=== PATIENT | female | born 1960 | race Two or more races ===

== ENCOUNTER 2024-11-30 12:10 | Day surgery (SDC) | payer MEDICARE, MEDICAID, SELFPAY ==
--- NOTE | 2024-11-29 09:12 | EKG_ITS ---
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
[2024-11-29 09:55] LABS: Basophils % (Auto) 0 % (0-2.5); Eosinophils # (Auto) 0.2 Thou/mm3 (0.0-0.5); Eosinophils % (Auto) 5 % (0-10); Hematocrit 41.2 % (36.0-46.0); Hemoglobin 14.9 g/dL (12.0-16.0); Immature Granulocytes % (Auto) 0 % (0-0); Immature Granulocytes Auto 0.01 Thou/mm3 (0.00-0.00); Lymphocytes % (Auto) 30 % (10-50); Mean Corpuscular HGB Conc 36.2 g/dl (31.0-37.0); Mean Corpuscular Hemoglobin 32.1 pg (25.0-35.0); Mean Corpuscular Volume 89 fL (80-100); Monocytes # (Auto) 0.4 Thou/mm3 (0.0-0.8); Monocytes % (Auto) 11 % (0-12); Neutrophils # (Auto) 1.9 Thou/mm3 (1.8-7.7); Neutrophils % (Auto) 53 % (37-80); Nucleated Red Blood Cell % 0 /100 WBC (0); RDW Standard Deviation 45.6 fL (36.4-46.3); Red Blood Count 4.64 Miln/mm3 (4.00-5.20); White Blood Count 3.5 Thou/mm3 (3.6-11.0)
[2024-11-29 10:17] LABS: Platelet Count 64 Thou/mm3 (140-440)
[2024-11-29 10:21] LABS: Alanine Aminotransferase 12 U/L (10-49); Albumin, Serum 3.9 gm/dL (3.4-4.8); Albumin/Globulin Ratio 1.4 (1.2-2.2); Alkaline Phosphatase 77 U/L (46-116); Anion Gap 11 (7-16); Aspartate Amino Transferase 27 U/L (0-34); BUN/Creatinine Ratio 15 Ratio (12-20); Bilirubin,Total 2.4 mg/dL (0.3-1.2); Blood Urea Nitrogen 9 mg/dL (9-23); Calcium 9.9 mg/dL (8.3-10.6); Carbon Dioxide 26.2 mMol/L (20.0-31.0); Chloride 104 mMol/L (98-107); Creatinine (Component) 0.6 mg/dL (0.6-1.3); Globulin 2.8 gm/dL (2.3-3.5); Glucose 98 mg/dL (74-106); Osmolality,Calculated 279 (275-295); Potassium 3.9 mMol/L (3.4-5.1); Sodium 141 mMol/L (136-145); Total Protein 6.7 gm/dL (5.7-8.2); eGFR > 60 See Note
[2024-11-29 17:35] LABS: Slide Review Platelets confirmed
[2024-11-30] VITALS (8 sets, daily range): BP systolic 93–157; BP diastolic 53–63; PULSE 62–79; RESP 12–20; TEMP 36.4–36.7; O2SAT 95–100; BMI 30.9
--- NOTE | 2024-11-30 17:30 | SUR.PHASEII ---
3440 Patient arrived to recovery resting comfortably in [facility], on oxygen 2L via oxy mask, breathing unlabored, vital signs stable, denies pain and nausea
[2024-11-30] MEDS: PANTOPRAZOLE INJ 40 MG VIAL 80 MG IV (17:41)
--- NOTE | 2024-11-30 18:51 | SUR.PHASEII ---
1851 Patient meets discharge criteria from recovery, awake and alert, breathing unlabored, vital signs stable, denies pain and nausea, patient assisted with dressing into her clothing by this poem writer and her daughter, patient signed limited proficiency statement for her daughter to translate Sammarinese to her, discharge instructions given to patient and patients daughter, daughter signed discharge instructions. Patient given all her belongings prior to discharge, transported via her personal wheelchair and left in a private vehicle.
== END 2024-11-30 18:51 | disposition home or self-care (01) ==
PROVIDERS: Anesthesiology; PCP Registered Nurse Community Health; Referring Provider Internal Medicine Gastroenterology; Visit Provider Internal Medicine Gastroenterology
PROC: 0DJD8ZZ Inspection of Lower Intestinal Tract, Via Natural or Artificial Opening Endoscopic (ICD-10-PCS; CPT 45378; principal; 2024-11-30 14:00)
PROC: (CPT 43239; 2024-11-30 14:00)
DX: K52.9 Noninfective gastroenteritis and colitis, unspecified (principal); D12.3 Benign neoplasm of transverse colon; K64.8 Other hemorrhoids; K57.30 Diverticulosis of large intestine without perforation or abscess without bleeding; Z01.810 Encounter for preprocedural cardiovascular examination; K31.7 Polyp of stomach and duodenum; K29.50 Unspecified chronic gastritis without bleeding; K31.89 Other diseases of stomach and duodenum
CPT/HCPCS: 45385; 45380; 36415; 80053; 85025; 93005; A4649; J2250; J2371; J2470; J2704; J3010; J3490; J1596

== ENCOUNTER 2024-12-13 17:18 | Emergency (ER) | payer MEDICARE, MEDICAID, SELFPAY ==
[2024-12-13 18:06] VITALS: BP 188/64; PULSE 56; RESP 18; TEMP 36.9; O2SAT 99; BMI 33.1
--- NOTE | 2024-12-13 18:10 | EKG_ITS ---
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
--- NOTE | 2024-12-13 18:10 | XR_ITS ---
Examination: CT abdomen with intravenous contrast CT pelvis with intravenous contrast 2-D coronal reconstructions 2-D sagittal reconstructions Date and time of exam:December 14, 1999 2521 6 hours Indications: Right upper abdominal pain vomiting beginning today. CTDI: vol (mGy) 8.98 DLP: (mGycm) 458 Technique: Multiple axial sections of the abdomen and pelvis have been obtained. 64 slice high-resolution scanner used. 3 mm axial sections have been obtained, post intravenous injection 60 cc [id number]-370 2-D sagittal, coronal reconstructions obtained. Low dose protocols were performed. One or more of the following dose reduction techniques were used; automated exposure control, adjustment of the mA and/or KV according to patient size, use of iterative reconstruction technique. 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
--- NOTE | 2024-12-13 18:12 | PD.EDABDPN ---
ED Abdominal Pain RME/HPI General Chief Complaint: Abdominal Pain Stated complaint: RLQ ABD PAIN RADIATING TO BACK, VOMITING Time seen by provider: 12/13/24 17:50 Arrival date/time: 12/13/24 17:18 RME / HPI RME / HPI narrative: Patient is a 64-year-old female with history of cirrhosis and pelvic/ovarian mass presents to the ED with complaint of lower abdominal pain onset earlier today. Patient had an episode of vomiting. Patient states the pain radiates to her back. Pain described as sharp. No fevers. No chest pain. Patient does endorse constipation. Related Data Home Medications ?Medication ?Instructions ?Recorded ?Confirmed furosemide 20 mg tablet 20 mg PO QDAY 12/03/19 11/29/24 lisinopril 5 mg tablet 5 mg PO QDAY 12/03/19 11/29/24 potassium chloride 10 mEq 10 meq PO QDAY 12/03/19 11/29/24 capsule,extended release Previous Rx's ?Medication ?Instructions ?Recorded ferrous sulfate 325 mg (65 mg 325 mg PO BIDWM #60 tabs 12/07/19 iron) tablet,delayed release pantoprazole 40 mg tablet,delayed 40 mg PO QDAY #30 tabs 12/07/19 release ondansetron 4 mg disintegrating 4 mg PO Q8H PRN nausea and 12/13/24 tablet vomiting #30 tabs polyethylene glycol 3350 17 17 g PO QDAY 5 days #119 grams 12/13/24 gram/dose oral powder Allergies Allergy/AdvReac Type Severity Reaction Status Date / Time No Known Allergies Allergy Verified 12/13/24 17:22 Review of Systems Review of Systems Systems Reviewed: All systems reviewed, normal except as documented Past Medical History Past Medical History NEUROLOGIC: Negative Neurological Disorders, Transient Ischemic Attacks (TIA), Dementia, Alzheimer's Disease, Parkinson's Disease, Brain Tumor, Meningitis, Seizures, Epilepsy, Multiple Sclerosis, Cerebral Palsy, Amyotrophic Lateral Sclerosis (ALS/Azalia Gehrig's), Guillain-Galt Syndrome, Spina Bifida, Paralysis, Peripheral Neuropathy, Soler's Palsy, Subdural Hematoma, Migraine, Head Trauma or Spinal Cord Injury CARDIAC: Positive Cardiac Disorders, Edema and Hypertension; Negative Myocardial Infarction, Cardiac Arrhythmia, Atrial Fibrillation, Angina, Heart Murmur, Coronary Artery Disease, Atherosclerotic Heart Disease, Peripheral Vascular Disease, Hypercholesterolemia, Aneurysm, Congestive Heart Failure, Congenital Heart Disease, Valvular Heart Disease, Rheumatic Fever, Cardiomyopathy, Pericarditis, Cellulitis, Deep Vein Thrombosis, Hypotension or Varicose Veins RESPIRATORY: Negative Chronic Obstructive Pulmonary Disease (COPD), Asthma, Bronchitis, Emphysema, Pneumonia, Pulmonary Fibrosis, Cystic Fibrosis, Tuberculosis, Pulmonary Embolism, Pulmonary Edema or Sleep Apnea GASTROINTESTINAL: Negative Gastrointestinal Disorders, Hepatitis, Cirrhosis, Pancreatitis, Celiac Disease, Gall Bladder Disease, Gastrointestinal Bleed, Esophageal Varices, Jasso's Esophagus, Colitis, Ulcerative Colitis, Diverticulitis, Diverticulosis, Ulcer, Colorectal Cancer, Irritable Bowel, Crohn's Disease, Obstructive Bowel, Hiatal Hernia, Hemorrhoids, Gastroesophageal Reflux Disease or Obesity GENITOURINARY: Negative Genitourinary Disorders, Renal Disease, Kidney Stones, Polycystic Kidney Disease, Neurogenic Bladder, Inguinal Hernia, Dialysis or Benign Prostatic Hyperplasia REPRODUCTIVE: Negative Breast Cancer, Endometriosis, Genital Herpes, Gonorrhea, Pelvic Inflammatory Disease, Previous Pregnancies, Syphilis or Uterine Prolapse MUSCULOSKELETAL: Negative Musculoskeletal Disorders, Muscular Dystrophy, Myasthenia Gravis, Marfan's Syndrome, Bone Cancer, Arthritis, Rheumatoid Arthritis, Osteoporosis, Degenerative Disk Disease, Gout, Scoliosis, Carpal Tunnel Syndrome, Fibromyalgia, Fractures, Degenerative Joint Disease, Osteomyelitis or Poliovirus ENT: Negative Cataracts, Glaucoma, Blind, Retinal Detachment, Macular Degeneration, Ear Infection, Deafness, Head Trauma or Eye Prosthesis ENDOCRINE: Negative Endocrine Disorders, Diabetes Mellitus Type 1, Diabetes Mellitus Type 2, Hypoglycemia, [place]'s Syndrome, Ignacio's Disease, Hyperthyroidism, Hypothyroidism, Parathyroid Disease, Pituitary Disease, Systemic Lupus Erythematosus, Syndrome of Inappropriate Antidiuretic Hormone (SIADH), Adrenal Disease or Graves' Disease HEMATOLOGIC: Positive Blood Disorders and Anemia; Negative Leukemia, Hemophilia, Thalassemia, Sickle Cell Disease or Clotting Problems PSYCHO/SOCIAL: Negative Psychiatric Problems, Schizophrenia, Recreational Drug Use, Bipolar Disorder, Depression, Anxiety, Behavior Problems, Self-Mutilation, Attention Deficit Disorder, Attention Deficit Hyperactivity Disorder, Depression, Post Traumatic Stress Disorder or Eating Disorder OTHER HISTORY: Positive Falls; Negative Hospitalization, Autoimmune Disease, Down Syndrome, Autism, Developmental Delay, Shingles, Blood Transfusions, Blood Transfusion Reaction, Anesthesia Reactions, Organ Transplant, Chemotherapy, Radiation Therapy, Hyperbaric Therapy, MRSA, VRSA, Vancomycin-Resistant Enterococci, Human Immunodeficiency Virus (HIV), Chicken Pox, Measles, Mumps, Rubella (Kinyarwanda Measles), Pertussis, Clostridium Difficile, Cancer, Breast Cancer, Cervical Cancer, Colorectal Cancer, Lung Cancer or Ovarian Cancer Family History FAMILY HISTORY: Negative Family Psychiatric Problems, Family Respiratory Disorders, Family Cardiac Disorders, Family Gastrointestinal Problems, Family Cancer, Family Surgery or Family Anesthesia Reaction Surgical History SURGICAL: Negative Cardiac Surgery, Open Heart Surgery, Coronary Artery Bypass Graft, Valve Replacement, Vascular Surgery, Coronary Stent, Cardiac Catheterization, Pacemaker, Angiogram, Auto Implanted Cardiovert Defib, Carotid Endarterectomy, Endocrine Surgery, Thyroidectomy, Ear Surgery, Tympanostomy Tube, Eye Surgery, Nose Surgery, Oral Surgery, Tonsillectomy, Adenoidectomy, Cochlear Implant, Corneal Transplant, Throat Surgery, Abdominal Surgery, Tracheostomy, Gastric Bypass Surgery, Gastrostomy, Bowel Surgery, Nephrectomy, Transurethral Resection, Joint Replacement, Amputation, Open Reduction Internal Fixation, Arthroscopy, Neurologic Surgery, Brain Shunt, Mastectomy, Lumpectomy, Hysterectomy, Tubal Ligation, Section or Organ Transplant Social History SMOKING STATUS: Never smoker Travel History EBOLA RISK: No ED Exam Narrative Physical exam: Constitutional: no acute distress, age appropriate, non-toxic Eyes: PERRL, conjunctivae w/o pallor, EOMI HENT: normocephalic, atraumatic. Oral mucosa moist Respiratory Effort: no stridor, effort normal, no retractions Breath sounds: Clear bilaterally; No rales, No rhonchi, No wheezing Cardiovascular: regular rhythm, S1 and S2 normal, no murmur Abdominal: soft; non-distended. Generalized lower abdominal tenderness without rebound tenderness or guarding. Musculoskeletal: no deformities, no swelling, no LE edema Skin: warm, dry; No rash Neurology: alert, oriented X 4. Normal gait. Moves all extremities spontaneously. Psychology: cooperative, normal mood Course Quality Measures none Orders Category Date Time Status CT Screening NOW Care 12/13/24 18:10 Active EKG (ED ONLY) *Do not use* NOW Care 12/13/24 18:[address] abdomen pelvis w con Stat Exams 12/13/24 18:10 Completed EKG (ED Only) Stat Exams 12/13/24 18:10 Ordered CBC Stat Lab 12/13/24 18:21 Completed CMP [Comprehensive Metabolic Panel] Stat Lab 12/13/24 18:21 Completed Lipase Stat Lab 12/13/24 18:21 Completed Troponin I Stat Lab 12/13/24 18:21 Completed Urinalysis Stat Lab 12/13/24 18:30 Completed HYDROcodone*/APAP 5/325 [[place] 5/325] Med 12/13/24 18:10 Discontinued 1 tab PO X1 ONE Ondansetron Odt [Zofran Odt] Med 12/13/24 18:10 Discontinued 4 mg PO X1 ONE Vital Signs Vital signs: Vital Signs Temperature 98.4 F 12/13/24 18:06 Pulse Rate 56 L 12/13/24 18:06 Respiratory Rate 18 12/13/24 18:06 Blood Pressure 188/64 H 12/13/24 18:06 Pulse Oximetry (%) 99 12/13/24 18:06 Oxygen Delivery Method Room Air 12/13/24 18:06 Abdominal Pain MDM MDM Narrative MDM Narrative:: 64-year-old female with history of cirrhosis and ovarian mass presents with complaint of lower abdominal pain and constipation. Differential diagnoses include appendicitis, diverticulitis, UTI, bowel obstruction CT scan shows previously present ovarian mass. No appendicitis or diverticulitis. No bowel obstruction. Patient felt better after medications. Will send Rx for MiraLAX for constipation. Counseled to increase oral fluid intake. Patient is following with [facility] in [place]. No indication for admission or further workup. Counseled to follow-up with primary care and with her specialist in [place]. Strict return to ED precautions given. Stable for discharge home. Patient data External records reviewed:: [facility] previous records Clinical information provided by:: patient Social determinants that could affect healthcare access:: none Patient has the following chronic illnesses:: Hypertension, anemia How is presenting disease/condition affected by chronic disease/condition?: uneffected by Evaluation data The following diagnostics were reviewed and interpreted by me:: lab results, radiology exam(s) and EKG tracing(s) Lab and/or radiology exams considered but not ordered:: None Interpretation Summary: EKG: Sinus bradycardia rate of 53. No STEMI. No T wave abnormalities. No heart block. CBC shows no leukocytosis. Chronic thrombocytopenia at baseline. Normal hemoglobin. CMP shows no electrolyte abnormalities, no LUCIAN. Bilirubin at baseline. UA unremarkable Examination: CT abdomen with intravenous contrast CT pelvis with intravenous contrast 2-D coronal reconstructions 2-D sagittal reconstructions Date and time of exam:December 14, 1999 2521 6 hours Indications: Right upper abdominal pain vomiting beginning today. 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 (list below): No Diagnosis Differential diagnosis abdominal pain: other (See MDM) Most likely diagnosis given after review of the tests above:: Pelvic mass, constipation Admission Indicated Admission indicated?: not indicated Admission Request Was there a request for admission?: No Disposition Plan Disposition Plan: Discharge Discharge Attestation Discharge Attestation: The patient and all family members were given an opportunity to ask questions and understood the discharge instructions. Discharge instructions specifically effects, indications for sooner follow up or return to the emergency department, and the expected course of current diagnosis. Patient condition: Stable Discharge Plan Plan Patient Disposition: HOME (Self Care) Prescriptions/Referrals Prescriptions/Med Rec: New polyethylene glycol 3350 17 gram/dose powder 17 g PO QDAY 5 Days Qty: 119 0RF ondansetron 4 mg tablet,disintegrating 4 mg PO Q8H PRN (Reason: nausea and vomiting) Qty: 30 0RF No Action potassium chloride 10 mEq Capsule, Extended Release 10 meq PO QDAY lisinopril 5 mg Tablet 5 mg PO QDAY furosemide 20 mg Tablet 20 mg PO QDAY pantoprazole 40 mg Tablet,Delayed Release (Dr/Ec) 40 mg PO QDAY Qty: 30 0RF ferrous sulfate 325 mg (65 mg iron) Tablet,Delayed Release (Dr/Ec) 325 mg PO BIDWM Qty: 60 0RF Referrals: No Primary/Family,Physician [Primary Care Provider] - In 1 week Problem List Clinical Impression: Pelvic mass in female, Constipation Patient/Caregiver Discharge Instructions Education Materials: ED Constipation (Adult) Additional Instructions: Increase oral fluid intake. Follow-up with your specialist in [place]. Follow-up with primary care. Return to the ED at anytime for any new or worsening symptoms. Print Language: Kuwaiti Stand Alone Forms: Dahlia Award Info., Patient Portal Info Letter
[2024-12-13 18:43] LABS: Basophils % (Auto) 0 % (0-2.5); Eosinophils # (Auto) 0.1 Thou/mm3 (0.0-0.5); Eosinophils % (Auto) 2 % (0-10); Hematocrit 38.5 % (36.0-46.0); Hemoglobin 13.9 g/dL (12.0-16.0); Immature Granulocytes % (Auto) 0 % (0-0); Immature Granulocytes Auto 0.01 Thou/mm3 (0.00-0.00); Lymphocytes # (Auto) 0.6 Thou/mm3 (1.0-4.8); Lymphocytes % (Auto) 14 % (10-50); Mean Corpuscular HGB Conc 36.1 g/dl (31.0-37.0); Mean Corpuscular Volume 89 fL (80-100); Monocytes # (Auto) 0.3 Thou/mm3 (0.0-0.8); Monocytes % (Auto) 7 % (0-12); Neutrophils # (Auto) 3.4 Thou/mm3 (1.8-7.7); Neutrophils % (Auto) 76 % (37-80); Nucleated Red Blood Cell % 0 /100 WBC (0); RDW Standard Deviation 45.7 fL (36.4-46.3); Red Blood Count 4.35 Miln/mm3 (4.00-5.20); White Blood Count 4.5 Thou/mm3 (3.6-11.0)
[2024-12-13 18:57] LABS: Platelet Count 69 Thou/mm3 (140-440)
[2024-12-13 19:12] LABS: Alanine Aminotransferase 7 U/L (10-49); Albumin, Serum 3.9 gm/dL (3.4-4.8); Albumin/Globulin Ratio 1.3 (1.2-2.2); Alkaline Phosphatase 74 U/L (46-116); Anion Gap 11 (7-16); Aspartate Amino Transferase 29 U/L (0-34); BUN/Creatinine Ratio 20 Ratio (12-20); Bilirubin,Total 1.4 mg/dL (0.3-1.2); Blood Urea Nitrogen 10 mg/dL (9-23); Calcium 9.3 mg/dL (8.3-10.6); Calcium (Corrected) 9.4 mg/dL (8.5-10.1); Carbon Dioxide 24.1 mMol/L (20.0-31.0); Chloride 105 mMol/L (98-107); Creatinine (Component) 0.5 mg/dL (0.6-1.3); Estimated Creatinine Clearance 97.3 mL/min (>60); Glucose 150 mg/dL (74-106); Lipase 50 U/L (12-53); Osmolality,Calculated 281 (275-295); Potassium 3.3 mMol/L (3.4-5.1); Sodium 140 mMol/L (136-145); Total Protein 6.9 gm/dL (5.7-8.2); Troponin I < 0.020 ng/mL (0.0-0.045); eGFR > 60 See Note
[2024-12-13 19:13] LABS: Collection Type, Urine Clean Catch
[2024-12-13] MEDS: ONDANSETRON ODT 4 MG TABRAP PO (19:17)
[2024-12-13] MEDS: HYDROcodone/APAP 5/325 TABLET 1 TAB PO (19:17)
[2024-12-13 19:19] LABS: Slide Review Platelets confirmed
[2024-12-13 19:20] LABS: Bacteria,Urine Rare; Bilirubin,Urine Negative (Negative); Blood,Urine Negative (Negative); Clarity,Urine Clear (Clear/Hazy); Color,Urine Yellow (Lt Yel-Yel); Glucose, Urine Negative (Negative); Ketones,Urine 1+ (Negative); Leukocyte Esterase,Urine Negative (Negative); Nitrite,Urine Negative (Negative); Protein,Urine Trace (Neg - Trace); RBC,Urine 4 /hpf (0-3); Specific Gravity,Urine 1.022 (1.001-1.035); Squamous Epithelial Cell,Urine 3 /hpf (0-5); WBC,Urine 4 /hpf (0-5)
== END 2024-12-13 23:00 | disposition home or self-care (01) ==
PROVIDERS: Physician Assistant; Emergency Provider Emergency Medicine
DX: K80.20 Calculus of gallbladder without cholecystitis without obstruction (principal); K59.00 Constipation, unspecified; R19.00 Intra-abdominal and pelvic swelling, mass and lump, unspecified site; R00.1 Bradycardia, unspecified; K74.60 Unspecified cirrhosis of liver; I85.10 Secondary esophageal varices without bleeding; R18.0 Malignant ascites; R16.1 Splenomegaly, not elsewhere classified; I10 Essential (primary) hypertension
CPT/HCPCS: 36415; 74177; 80053; 81001; 83690; 84484; 85025; 93005; 99285; A4649; Q0162; Q9967; A9270

== ENCOUNTER → 2024-12-14 | Outpatient (CLI) | payer MEDICARE, MEDICAID, SELFPAY ==
--- NOTE | 2024-12-14 09:30 | XR_ITS ---
Examination: CT abdomen and pelvis without contrast. Coronal 3-D reconstructions. Sagittal 2-D reconstructions. Date and time of exam:December 14, 2024 1227 hours Comparison December 13, 2024 INDICATIONS: Cirrhosis diagnosis August 2023 with right upper abdominal pain beginning 2 days ago CTDI: vol (mGy): 8.67 DLP: (mGycm): 434 Technique: Axial images of the abdomen have been obtained, 3 mm slice thickness Intravenous contrast material has not been administered. Low dose protocols were performed. One or more of the following dose reduction techniques were used; automated exposure control, adjustment of the mA and/or KV according to patient size, use of iterative reconstruction technique. Findings: Mild to moderate enlargement cardiac contour Cirrhosis, liver nodular in contour 25 mm liver cyst Mild ascites Cholelithiasis Prominent splenomegaly Esophageal varices Perigastric varices Bilateral renal calculi 1 to 3 mm, no hydronephrosis No bowel obstruction Again noted septated complex cystic mass in the pelvis, at least 10 x 14 x 11 cm Significant osteopenia IMPRESSION: Cirrhosis Prominent splenomegaly Cholelithiasis Mild ascites Bilateral nonobstructing renal calculi Again noted large complex septated cystic mass in the pelvis, at least 10 x 14 x 11 cm
[2024-12-14 11:52] LABS: Misc Send Out* See Sep Rpt
[2024-12-14 12:17] LABS: Basophils % (Auto) 0 % (0-2.5); Eosinophils # (Auto) 0.1 Thou/mm3 (0.0-0.5); Eosinophils % (Auto) 3 % (0-10); Hematocrit 37.7 % (36.0-46.0); Hemoglobin 13.2 g/dL (12.0-16.0); Immature Granulocytes % (Auto) 1 % (0-0); Immature Granulocytes Auto 0.03 Thou/mm3 (0.00-0.00); Lymphocytes # (Auto) 0.5 Thou/mm3 (1.0-4.8); Lymphocytes % (Auto) 11 % (10-50); Mean Corpuscular Hemoglobin 31.4 pg (25.0-35.0); Mean Corpuscular Volume 90 fL (80-100); Monocytes # (Auto) 0.3 Thou/mm3 (0.0-0.8); Monocytes % (Auto) 7 % (0-12); Neutrophils # (Auto) 3.6 Thou/mm3 (1.8-7.7); Neutrophils % (Auto) 78 % (37-80); Nucleated Red Blood Cell % 0 /100 WBC (0); RDW Standard Deviation 46.7 fL (36.4-46.3); White Blood Count 4.6 Thou/mm3 (3.6-11.0)
[2024-12-14 12:19] LABS: INR 1.2 (0.9-1.3); Prothrombin Time 12.6 Seconds (9.0-12.2)
[2024-12-14 12:28] LABS: Platelet Count 64 Thou/mm3 (140-440)
[2024-12-14 12:49] LABS: Ferritin 116 ng/mL (7.3-270.7)
[2024-12-14 12:52] LABS: Ammonia 38 uMol/L (11-32)
[2024-12-14 12:56] LABS: Alanine Aminotransferase 11 U/L (10-49); Albumin, Serum 3.8 gm/dL (3.4-4.8); Alkaline Phosphatase 74 U/L (46-116); Anion Gap 12 (7-16); Aspartate Amino Transferase 26 U/L (0-34); BUN/Creatinine Ratio 22 Ratio (12-20); Bilirubin,Direct 0.8 mg/dL (0.0-0.3); Bilirubin,Total 1.7 mg/dL (0.3-1.2); Blood Urea Nitrogen 11 mg/dL (9-23); C-Reactive Protein 1.2 mg/dL (0.0-0.9); Calcium 9.1 mg/dL (8.3-10.6); Carbon Dioxide 25.5 mMol/L (20.0-31.0); Chloride 104 mMol/L (98-107); Creatinine (Component) 0.5 mg/dL (0.6-1.3); Glucose 108 mg/dL (74-106); LDH (Lactate Dehydrogenase) 174 U/L (120-246); Osmolality,Calculated 281 (275-295); Potassium 3.7 mMol/L (3.4-5.1); Sodium 141 mMol/L (136-145); Total Protein 6.4 gm/dL (5.7-8.2); eGFR > 60 See Note
[2024-12-14 12:58] LABS: Sed Rate (ESR) 15 mm/hr (0-30)
[2024-12-14 13:03] LABS: Slide Review Platelets confirmed
[2024-12-14 13:45] LABS: Carcinoembryonic Antigen 4.7 ng/mL (0.0-5.0); Hepatitis A Antibody IgM Non Reactive (Non React); Hepatitis B Core Antibody IgM Non Reactive (Non React); Hepatitis B Surface Antigen Non Reactive (Non React); Hepatitis C Antibody Non Reactive (Non React)
[2024-12-19 06:58] LABS: HIV Ag/Ab, 4th Gen NON-REACTIVE
== END | disposition home or self-care (01) ==
LOC: CCTX 09:39 → COPL 11:24
PROVIDERS: Referring Provider Internal Medicine Gastroenterology; Visit Provider Internal Medicine Gastroenterology
DX: K74.60 Unspecified cirrhosis of liver (principal); R16.1 Splenomegaly, not elsewhere classified; K80.20 Calculus of gallbladder without cholecystitis without obstruction; R18.8 Other ascites; N20.0 Calculus of kidney; N94.89 Other specified conditions associated with female genital organs and menstrual cycle
CPT/HCPCS: 36415; 74176; 80048; 80074; 80076; 82105; 82140; 82378; 82728; 83615; 85025; 85610; 85652; 86140; 87389

== ENCOUNTER → 2024-12-20 | Outpatient (CLI) | payer MEDICARE, MEDICAID, SELFPAY ==
[2024-12-28 06:51] LABS: Helicobacter pylori Ag, Stool* NOT DETECTED (NOT DETECTED)
== END | disposition home or self-care (01) ==
LOC: SLDO 13:16
PROVIDERS: Referring Provider Internal Medicine Gastroenterology; Visit Provider Internal Medicine Gastroenterology
DX: Z01.89 Encounter for other specified special examinations (principal)
CPT/HCPCS: 87338

== ENCOUNTER → 2024-12-22 | Outpatient (CLI) | payer MEDICARE, MEDICAID, SELFPAY ==
[2024-12-22 07:56] LABS: Quantiferon-TB* See Sep Rpt
== END | disposition home or self-care (01) ==
PROVIDERS: PCP Registered Nurse Community Health; Referring Provider Internal Medicine Gastroenterology; Visit Provider Internal Medicine Gastroenterology
DX: Z01.89 Encounter for other specified special examinations (principal)
CPT/HCPCS: 86480

== ENCOUNTER → 2025-02-24 | Outpatient (CLI) | payer MEDICARE, MEDICAID, SELFPAY ==
--- NOTE | 2025-02-24 15:03 | XR_ITS ---
Examination: Abdomen sonogram, Limited Date and time of exam: February 24, 2025 1512 hours INDICATIONS: Diagnosis cirrhosis several years ago Technique: Real-time tate scale transabdominal sonographic images of the upper abdomen obtained. Findings: Contracted gallbladder Gallstones, the largest 18 mm Gallbladder 1.3 cm Common bile duct 0.5 cm Pancreatic head 3.0 cm Liver 12.3 cm irregular contour and no focal liver lesions Normal hepatopedal portal venous flow Patent IVC IMPRESSION: Cholelithiasis, negative for cholecystitis Cirrhosis, no focal liver lesions
[2025-02-24 16:13] LABS: Basophils % (Auto) 0 % (0-2.5); Eosinophils # (Auto) 0.1 Thou/mm3 (0.0-0.5); Eosinophils % (Auto) 4 % (0-10); Hematocrit 34.9 % (36.0-46.0); Immature Granulocytes % (Auto) 0 % (0-0); Immature Granulocytes Auto 0.01 Thou/mm3 (0.00-0.00); Lymphocytes # (Auto) 0.6 Thou/mm3 (1.0-4.8); Lymphocytes % (Auto) 25 % (10-50); Mean Corpuscular HGB Conc 37.2 g/dl (31.0-37.0); Mean Corpuscular Hemoglobin 32.3 pg (25.0-35.0); Mean Corpuscular Volume 87 fL (80-100); Monocytes # (Auto) 0.2 Thou/mm3 (0.0-0.8); Monocytes % (Auto) 9 % (0-12); Neutrophils # (Auto) 1.5 Thou/mm3 (1.8-7.7); Neutrophils % (Auto) 60 % (37-80); Nucleated Red Blood Cell % 0 /100 WBC (0); RDW Standard Deviation 41.9 fL (36.4-46.3); Red Blood Count 4.03 Miln/mm3 (4.00-5.20)
[2025-02-24 16:14] LABS: Platelet Count 46 Thou/mm3 (140-440); White Blood Count 2.6 Thou/mm3 (3.6-11.0)
[2025-02-24 16:19] LABS: INR 1.2 (0.9-1.3); Partial Thromboplastin Time 30.8 Seconds (22.0-36.0); Prothrombin Time 12.5 Seconds (9.0-12.2)
[2025-02-24 16:23] LABS: Alanine Aminotransferase 14 U/L (10-49); Albumin/Globulin Ratio 1.4 (1.2-2.2); Alkaline Phosphatase 76 U/L (46-116); Anion Gap 9 (7-16); Aspartate Amino Transferase 26 U/L (0-34); BUN/Creatinine Ratio 13 Ratio (12-20); Bilirubin,Total 1.4 mg/dL (0.3-1.2); Blood Urea Nitrogen 8 mg/dL (9-23); Calcium 9.1 mg/dL (8.3-10.6); Calcium (Corrected) 9.1 mg/dL (8.5-10.1); Carbon Dioxide 26.7 mMol/L (20.0-31.0); Chloride 102 mMol/L (98-107); Creatinine (Component) 0.6 mg/dL (0.6-1.3); Globulin 2.8 gm/dL (2.3-3.5); Glucose 98 mg/dL (74-106); Osmolality,Calculated 273 (275-295); Potassium 3.8 mMol/L (3.4-5.1); Sodium 138 mMol/L (136-145); Total Protein 6.8 gm/dL (5.7-8.2); eGFR > 60 See Note
[2025-02-24 17:09] LABS: Slide Review Platelets confirmed
== END | disposition home or self-care (01) ==
LOC: CDIM 15:02 → COPL 15:31
PROVIDERS: PCP Registered Nurse Community Health; Referring Provider Specialist; Visit Provider Radiology Diagnostic Radiology
DX: K80.20 Calculus of gallbladder without cholecystitis without obstruction (principal); K74.60 Unspecified cirrhosis of liver
CPT/HCPCS: 36415; 76705; 80053; 82105; 85025; 85610; 85730

== ENCOUNTER → 2025-09-05 | Outpatient (CLI) | payer MEDICARE, MEDICAID, SELFPAY ==
--- NOTE | 2025-09-05 11:00 | XR_ITS ---
Examination: Abdomen sonogram, Limited Date and time of exam: September 05, 2025, 11:02 a.m. INDICATIONS: Diagnosis cirrhosis Technique: Real-time tate scale transabdominal sonographic images of the upper abdomen obtained. Findings: Multiple gallstones Gallbladder wall 0.3 cm no edema Common bile duct 0.4 cm Pancreatic head 2.6 cm Liver 11.4 cm irregular contour right lobe liver cyst 20 mm Normal hepatopetal portal venous flow Patent IVC IMPRESSION: Cholelithiasis, negative for cholecystitis Normal common bile duct Cirrhosis, no focal liver lesions
[2025-09-05 12:06] LABS: Basophils # (Auto) 0.0 Thou/mm3 (0.0-0.2); Basophils % (Auto) 0 % (0-2.5); Eosinophils # (Auto) 0.1 Thou/mm3 (0.0-0.5); Eosinophils % (Auto) 5 % (0-10); Hematocrit 35.8 % (36.0-46.0); Hemoglobin 12.8 g/dL (12.0-16.0); Immature Granulocytes Auto 0.00 Thou/mm3 (0.00-0.00); Lymphocytes # (Auto) 0.6 Thou/mm3 (1.0-4.8); Lymphocytes % (Auto) 21 % (10-50); Mean Corpuscular HGB Conc 35.8 g/dl (31.0-37.0); Mean Corpuscular Hemoglobin 31.6 pg (25.0-35.0); Mean Corpuscular Volume 88 fL (80-100); Monocytes # (Auto) 0.2 Thou/mm3 (0.0-0.8); Monocytes % (Auto) 6 % (0-12); Neutrophils # (Auto) 1.8 Thou/mm3 (1.8-7.7); Neutrophils % (Auto) 68 % (37-80); Nucleated Red Blood Cell # 0.00 Thou/mm3 (0.00-0.00); Nucleated Red Blood Cell % 0 /100 WBC (0); RDW Standard Deviation 43.3 fL (36.4-46.3); Red Blood Count 4.05 Miln/mm3 (4.00-5.20); White Blood Count 2.6 Thou/mm3 (3.6-11.0)
[2025-09-05 12:18] LABS: INR 1.1 (0.9-1.3); Prothrombin Time 11.8 Seconds (9.0-12.2)
[2025-09-05 12:28] LABS: Alanine Aminotransferase 26 U/L (10-49); Albumin, Serum 4.5 gm/dL (3.4-4.8); Albumin/Globulin Ratio 1.8 (1.2-2.2); Alkaline Phosphatase 98 U/L (46-116); Anion Gap 8 (7-16); Aspartate Amino Transferase 34 U/L (0-34); BUN/Creatinine Ratio 24 Ratio (12-20); Bilirubin,Total 1.2 mg/dL (0.3-1.2); Blood Urea Nitrogen 12 mg/dL (9-23); Calcium 9.3 mg/dL (8.3-10.6); Calcium (Corrected) 9.3 mg/dL (8.5-10.1); Carbon Dioxide 28.7 mMol/L (20.0-31.0); Chloride 103 mMol/L (98-107); Creatinine (Component) 0.5 mg/dL (0.6-1.3); Globulin 2.5 gm/dL (2.3-3.5); Glucose 93 mg/dL (74-106); Osmolality,Calculated 279 (275-295); Potassium 3.7 mMol/L (3.4-5.1); Sodium 140 mMol/L (136-145); Total Protein 7.0 gm/dL (5.7-8.2); eGFR > 60 See Note
[2025-09-05 12:41] LABS: AFP Non-Pregnant 2.10 ng/mL (<8.10)
[2025-09-05 12:51] LABS: Platelet Count 44 Thou/mm3 (140-440)
[2025-09-05 15:55] LABS: Slide Review Platelets confirmed
[2025-09-11 07:04] LABS: Gamma Glutamyl Transpeptidase* 82 U/L (3-65)
== END | disposition home or self-care (01) ==
LOC: CDIM 11:24 → COPL 11:27
PROVIDERS: Specialist; PCP Registered Nurse Community Health; Referring Provider Internal Medicine Hematology & Oncology; Visit Provider Radiology Diagnostic Radiology
DX: K80.20 Calculus of gallbladder without cholecystitis without obstruction (principal); K74.60 Unspecified cirrhosis of liver; D64.9 Anemia, unspecified
CPT/HCPCS: 36415; 76705; 80053; 82105; 82977; 85025; 85610

== ENCOUNTER 2025-10-03 08:30 | Outpatient (AMB) | payer MEDICARE, MEDICAID, SELFPAY ==
[2025-10-03 08:49] VITALS: BP 147/71; PULSE 55; RESP 20; TEMP 36.8; O2SAT 99; BMI 21.7
--- NOTE | 2025-10-03 08:49 | ORTHONT_ITS ---
Vital signs 10/03/25 08:49 Height 1.5 m Height Method Measured Weight 49.045 kg Weight Measurement Method Standing Scale BMI 21.7 BP 147/71 H Blood Pressure Source Automatic Cuff Blood Pressure Location Left Upper Arm Position Sitting Respiration 20 Pulse 55 L Pulse Source Monitor Temp 98.2 F Temp Source Temporal Artery Scan Pulse Oximetry (%) 99 Oxygen Delivery Method Room Air Med/Allergies Allergies & Medications Allergies No Known Allergies Allergy (Verified 10/03/25 08:51) Medication Reconciliation meloxicam 7.5 mg tablet 7.5 mg PO QDAY 10/03/25 [History Confirmed 10/03/25] Exam Exam Patient is in no acute distress and is cooperative with the examination today. Breathing is nonlabored. In no respiratory distress. Bilateral extremities were evaluated and demonstrates sensation intact to light touch. Palpable pedal pulses are present. No significant edema is present. Bilateral hips were examined. The patient has no pain with log roll of the hips. Internal rotation to 30 degrees and external rotation to 30 degrees is painless. Negative FADIR. The left knee was examined. The left knee is in varus alignment. Range of motion from 0-115 degrees. Knee is stable to varus and valgus as well as AP translation with <5mm. Patient has a negative McMurrays. There is no pain with patellofemoral compression and no crepitus noted. The knee is tender to palpation medially. The right knee was also examined. The right knee is in varus alignment. Range of motion from 0-120 degrees. Knee is stable to varus and valgus as well as AP translation with <5mm. Patient has a negative McMurrays. There is no pain with patellofemoral compression and no crepitus noted. The knee is tender to palpation medially. An MRI from [place] imaging of the left knee was reviewed. Demonstrates [id number] arthritis and significant degenerative changes Assessment and Plan Problem List (1) Degenerative arthritis of knee, bilateral: Status: Acute Plan: Patient is a 65-year-old female with cirrhosis of significant severity who presents today for evaluation of her bilateral knee pain. MRI demonstrates significant arthritis. I would like to get weightbearing x-rays. We discussed nonoperative treatment including injections and anti-inflammatories. She would like bilateral cortisone injections today Recommend knee cortisone injection as patient would like to proceed with conservative treatment at this time. The risks and benefits of the procedure were reviewed with the patient and patient gave verbal consent to continue with the procedure. Procedure: performed by Dr. Sanchez Using sterile technique the Right knee was thoroughly prepped with alcohol, and approximately 1 cc of Depo-Medrol 80mg/mL and 4 cc of 0.2% ropivacaine was injected without resistance into the medial tibial femoral joint space. The patient tolerated the procedure. Recommend knee cortisone injection as patient would like to proceed with conservative treatment at this time. The risks and benefits of the procedure were reviewed with the patient and patient gave verbal consent to continue with the procedure. Procedure: performed by Dr. Sanchez Using sterile technique the leftknee was thoroughly prepped with alcohol, and approximately 1 cc of Depo- Medrol 80mg/mL and 4 cc of 0.2% ropivacaine was injected without resistance into the medial tibial femoral joint space. The patient tolerated the procedure. 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 ([id number]) Surgical Proc/IM SQ injection Minor Surgical Procedure: Yes (BILATERAL KNEE INJECTION) Medication Given Medication Given Medication Given: Yes Documented Dose Given: 2 Route: Infiitration Medication Given Medication Given Medication Given: Yes Documented Dose Given: 8 Route: Infiitration Office Meds methylprednisolone acetate 80 mg/mL suspension for injection Performing Provider: Jose Juan Sanchez MD Performing Location: [facility] Administered by: Jose Juan Sanchez MD on 10/03/25 14:26 Dose Route Admin Location Dispensed Lot Number Expiration Date Pack age [facility] Cell Tuber Machine 160 mg intra-articular KNEE 2 mL [id number] 06/10/27 [address]-9 [id number] [employer] ropivacaine (PF) 2 mg/mL (0.2 %) injection solution Performing Provider: Jose Juan Sanchez MD Performing Location: [facility] Administered by: Jose Juan Sanchez MD on 10/03/25 14:26 Dose Route Admin Location Dispensed Lot Number Expiration Date Pack age NDC NDC Cell Tuber Machine 40 mL Infiltration KNEE 40 mL [id number] 03/10/27 3531-6849-47 [id number] AKI [employer]OUT MA Intake Visit Data Collection New Patient or Established: New Patient (never been to [facility]) Reason for Visit:: BL KNEE PAIN Seen by Clinical Staff ONLY (RN/MA): No Automatic Packer Operator Required: No PCP or OBGYN visit in last 3 months: Yes Hx Now: No Do You Feel Safe at Home: Yes Authorities Contacted: N/A Questionairres Past Medical History Past Medical History Have you ever been diagnosed with any of the following: Neurological Problems Transient Ischemic Attacks (TIA): No Dementia: No Alzheimer's Disease: No Parkinson's Disease: No Brain Tumor: No Meningitis: No Seizures: No Epilepsy: No Multiple Sclerosis: No Cerebral Palsy: No Amyotrophic Lateral Sclerosis (ALS/Azalia Gehrig's): No Guillain-[place] Syndrome: No Spina Bifida: No Paralysis: No Peripheral Neuropathy: No Soler's Palsy: No Subdural Hematoma: No Migraine: No Head Trauma: No Spinal Cord Injury: No Cardiology Problems Myocardial Infarction: No Cardiac Arrhythmia: No Atrial Fibrillation: No Angina: No Heart Murmur: No Coronary Artery Disease: No Atherosclerotic Heart Disease: No Peripheral Vascular Disease: No Hypercholesterolemia: No Aneurysm: No Congestive Heart Failure: No Congenital Heart Disease: No Valvular Heart Disease: No Rheumatic Fever: No Cardiomyopathy: No Edema: Yes Pericarditis: No Cellulitis: No Deep Vein Thrombosis: No Hypertension: Yes Hypotension: No Varicose Veins: No Respiratory Problems Chronic Obstructive Pulmonary Disease (COPD): No Asthma: No Bronchitis: No Emphysema: No Pneumonia: No Pulmonary Fibrosis: No Tuberculosis: No Pulmonary Embolism: No Pulmonary Edema: No Sleep Apnea: No Orthopnea: No Hx Cough: No Cough: No Wheezing: No Chest Deformities: No Smoking: No Smoking Cessation Counseling: No Smoking Exposure: No Stomache/Intestinal Problems Hepatitis: No Cirrhosis: No Pancreatitis: No Celiac Disease: No Gall Bladder Disease: No Gastrointestinal Bleed: No Esophageal Varices: No Jasso's Esophagus: No Colitis: No Ulcerative Colitis: No Diverticulitis: No Diverticulosis: No Ulcer: No Colorectal Cancer: No Irritable Bowel: No Crohn's Disease: No Obstructive Bowel: No Hiatal Hernia: No Hemorrhoids: No Gastroesophageal Reflux Disease: No Obesity: No Genital/Urinary Problems Renal Disease: No Kidney Stones: No Polycystic Kidney Disease: No Neurogenic Bladder: No Inguinal Hernia: No Dialysis: No Reproductive Problems Breast Cancer: No Endometriosis: No Genital Herpes: No Gonorrhea: No Pelvic Inflammatory Disease: No Previous Pregnancies: No Syphilis: No Uterine Prolapse: No Musculoskeletal Problems Muscular Dystrophy: No Myasthenia Gravis: No Marfan's Syndrome: No Bone Cancer: No Arthritis: No Rheumatoid Arthritis: No Osteoporosis: No Degenerative Disk Disease: No Gout: No Scoliosis: No Carpal Tunnel Syndrome: No Fibromyalgia: No Fractures: No Degenerative Joint Disease: No Osteomyelitis: No Poliovirus: No Head,Eye,Nose,Throat Problems Cataracts: No Glaucoma: No Blind: No Retinal Detachment: No Macular Degeneration: No Chronic Ear Infections: No Deafness: No Eye Prosthesis: No Endocrine Problems Diabetes Mellitus Type 1: No Diabetes Mellitus Type 2: No Hypoglycemia: No Henry's Syndrome: No Ignacio's Disease: No Hyperthyroidism: No Hypothyroidism: No Parathyroid Disease: No Pituitary Disease: No Systemic Lupus Erythematosus: No Syndrome of Inappropriate Antidiuretic Hormone: No Adrenal Disease: No Graves' Disease: No Blood Problems Anemia: Yes Leukemia: No Hemophilia: No Thalassemia: No Sickle Cell Disease: No Clotting Problems: No Psychologic Problems Schizophrenia: No Recreational Drug Use: No Bipolar Disorder: No Depression: No Anxiety: No Behavior Problems: No Self-Mutilation: No Attention Deficit Disorder: No Attention Deficit Hyperactivity Disorder: No Depression: No Post Traumatic Stress Disorder: No Eating Disorder: No Other Problems Hospitalization: No Down Syndrome: No Autism: No Developmental Delay: No Shingles: No Falls: Yes Blood Transfusions: No Blood Transfusion Reaction: No Anesthesia Reactions: No Organ Transplant: No Chemotherapy: No Radiation Therapy: No Hyperbaric Therapy: No MRSA: No VRSA: No Vancomycin-Resistant Enterococci: No Human Immunodeficiency Virus (HIV): No Chicken Pox: No Measles: No Mumps: No Rubella (I[place]ic Measles): No Pertussis: No Clostridium Difficile: No Cancer: No Cervical Cancer: No Lung Cancer: No Ovarian Cancer: No Surgical History Carotid Endarterectomy: No Coronary Artery Bypass Graft: No Valve Replacement: No Hysterectomy: No Pacemaker: No Thyroidectomy: No Subjective Visit Visit for: new patient and knee (BILATERAL) Immunization / Flu Flu Vaccine in the Last 12 Months: No Flu Vaccine Exclusion Criteria: Refused by Patient History of Present Illness Chief complaint: BILATERAL KNEE PAIN Date of injury / onset of symptoms: 2 YEARS Patient is a 65-year-old female with multiple medical committees including cirrhosis with bilateral knee pain worse on the left. The left knee pain has been ongoing for several years. She has tried injections in the past as well as meloxicam. 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
--- NOTE | 2025-10-03 08:58 | XR_ITS ---
Examination: Knee bilateral, 6 views of each knee Technique: Knee AP, lateral, oblique Date and time of exam: 10/03/2025 at 9:16 a.m. CLINICAL HISTORY: Bilateral chronic knee pain, also include weight bearing views. Right knee: 1 there is complete degenerative narrowing of the medial joint compartment of the right knee with subchondral eburnation of the medial femoral condyle and tibial plateau. There is erosion of the medial tibial plateau, large surrounding osteophytes, and slight lateral subluxation of the tibia relationship to the femur. Large degenerative osteophytes surround the medial and lateral and patellofemoral joint compartment. On the lateral side, again noted is lateral subluxation of the tibia, there is small osteophytes surrounding the lateral joint space although it is not narrowed. There is moderate definite degenerative narrowing of the patellofemoral joint space with surrounding osteophytes. The lateral view suggests that there might be a knee joint effusion seen within the suprapatellar bursa but I cannot be entirely certain about this Impression: 1. In the right knee there is complete degenerative narrowing of the medial joint compartment, there is lateral subluxation of the tibia in relationship to the femur, degenerative osteophytes surround all 3 joint compartments, there is moderate narrowing of the patellofemoral cartilage, and there is the suggestion of a possible knee joint effusion Left knee: On the left, there is virtually complete degenerative narrowing of the lateral joint compartment. There is significant lateral subluxation of the tibia in relationship to the femur, there is irregular subchondral bony erosion involving the medial femoral condyle, there is diffuse inferior flattening of the medial tibial plateau. Osteophytes surround all 3 joint compartments in the left knee. Lateral view shows virtually complete narrowing of the patellofemoral joint space with surrounding osteophytes, there is also suggestion knee joint effusion on the left the DJD in the left patellofemoral joint space is much more severe than on the right side. IMPRESSION: 1. There is major, very extensive degenerative joint disease involving all 3 joint compartments of both knees. On both sides there is a suggestion of possible knee joint effusions 2 regarding the very many very extensive degenerative changes, please see the above discussion
== END 2025-10-03 09:08 | disposition home or self-care (01) ==
PROVIDERS: PCP Registered Nurse Community Health; Referring Provider Registered Nurse Community Health; Supervising Provider Orthopaedic Surgery Adult Reconstructive Orthopaedic Surgery; Visit Provider Orthopaedic Surgery Adult Reconstructive Orthopaedic Surgery
DX: M17.0 Bilateral primary osteoarthritis of knee (principal); M25.562 Pain in left knee; M25.561 Pain in right knee; K74.60 Unspecified cirrhosis of liver; I10 Essential (primary) hypertension
CPT/HCPCS: 20610; 73564; 99204; J1010; J2795; G0463